=== PATIENT | male | born 1960 | race Caucasian/White ===

== ENCOUNTER 2024-10-25 01:55 | Emergency (ER) | payer MEDICARE, SELFPAY ==
[2024-10-25 01:55] VITALS: BP 131/102; PULSE 133; RESP 20; TEMP 37.1; O2SAT 96; BMI 33.0
--- NOTE | 2024-10-25 01:55 | ECG_ITS ---
APPROVED REPORT Exam: Resting ECG HR:115 bpm ECG Measurements Heart Rate 115 AXES NM 181 P 64 QRSd 109 QRS 73 QT 332 T 38 QTc 400 Conclusion SINUS TACHYCARDIA NONSPECIFIC T-WAVE ABNORMALITY ABNORMAL RHYTHM ECG UNCONFIRMED REPORT Electronically signed by : DEB CHEW, 10/25/2024 06:49:59
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
[2024-10-25 02:00] LABS: VBG Base Excess -0.2 mmol/L (-2.4-2.3); VBG HCO3 24.8 mmol/L (23-30); VBG PCO2 42.2 mmol/L (35-51); VBG PH 7.39 mmol/L (7.31-7.41); VBG PO2 42.4 mmol/L (28-40); VBG Total CO2 26.1 mmol/L (23-27)
[2024-10-25 02:01] LABS: Basophils % 0.6 % (0.1-2.0); Eosinophils # 0.1 Kmm3 (0.0-0.4); Eosinophils % 2.2 % (0.1-12.0); Hematocrit 41.6 % (42.0-52.0); Hemoglobin 14.1 g/dL (14.1-18.0); Immature Granulocytes # 0.02 10^3uL; Immature Granulocytes % 0.3 %; Lymphocytes # 2.2 K/mm3 (0.7-4.5); Lymphocytes % 33.6 % (10-50); Mean Corpuscular HGB Conc 33.9 g/dL (31.8-35.4); Mean Corpuscular Hemoglobin 30.5 pg (27.0-31.2); Mean Corpuscular Volume 89.8 fl (80-94); Mean Platelet Volume 8.8 fl (7.4-10.4); Monocytes # 0.4 K/mm3 (0.1-1.0); Monocytes % 6.5 % (1.7-9.3); Neutrophils # 3.6 K/mm3 (1.8-7.8); Neutrophils % 56.8 % (37.0-80.0); Nucleated Red Blood Cells # 0 10^3/uL; Nucleated Red Blood Cells % 0 %; Platelet Count 376 K/mm3 (142-424); Red Blood Count 4.63 M/mm3 (4.60-6.20); Red Cell Distribution Width 12.3 % (11.5-17.5); Red Cell Distribution Width-SD 40.3 fL; White Blood Count 6.4 K/mm3 (4.8-10.8)
[2024-10-25 02:13] LABS: Alanine Aminotransferase 14 U/L (12-78); Albumin Level 4.3 g/dl (3.5-5.0); Albumin/Globulin Ratio 1.5 (1.1-1.8); Alkaline Phosphatase 103 U/L (38-126); Anion Gap 9.8 mEq/L (5-15); Aspartate Amino Transferase 23 U/L (17-59); Bilirubin,Total 0.6 mg/dl (0.2-1.3); Blood Urea Nitrogen 13 mg/dl (9-20); Calcium 9.2 mg/dl (8.4-10.2); Carbon Dioxide 27 mmol/L (22.0-30.0); Chloride 105 mmol/L (98-107); Creatinine Clearance Estimated 121 mL/min (50-200); Estimated Glomerular Filt Rate 85 ml/min (>60); GFR (African American) 103 ML/MIN (>60); Globulin 2.9 g/dL (1.3-3.2); Glucose 107 mg/dl (74-100); Potassium 3.8 mmoL/L (3.5-5.1); Sodium 138 mmol/L (136-145); Total Protein,Serum 7.2 g/dl (6.3-8.2)
[2024-10-25 02:14] LABS: Carboxyhemoglobin 1.2 (0.0-5.0)
[2024-10-25 02:16] LABS: Acetaminophen < 10 ug/ml (10-30); Ethyl Alcohol < 10 mg/dl (0-10); Salicylate < 1.0 mg/dL (2.0-20.0)
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
--- NOTE | 2024-10-25 02:32 | PC.NURSE ---
pt remains off monitoring equipment due to patient pulling equipment off. Family here at this time.
--- NOTE | 2024-10-25 02:35 | PC.NURSE ---
pt has been provided with water and is drinking it at this time.
--- NOTE | 2024-10-25 02:43 | PC.NURSE ---
0239 Interactive discussion with family regarding POC. ED provider at the bedside at this time discussing POC
[2024-10-25 02:46] VITALS: BP 144/86; PULSE 115; RESP 24; TEMP 37.1; O2SAT 97
--- NOTE | 2024-10-25 02:46 | PC.NURSE ---
IV removed, family at the bedside. PD and [employer] department remains in the ED. Pt remains cuffed to bed for safety at this time. 3rd cup of ice and water given to patient at this time.
--- NOTE | 2024-10-25 02:52 | PC.NURSE ---
Attempt to discharge patient when family friend now states that she thinks it would be best to keep him here a little longer. ED provider at the bedside at this time.
== END 2024-10-25 03:00 | disposition home or self-care (01) ==
PROVIDERS: Emergency Provider Emergency Medicine
DX: R41.82 Altered mental status, unspecified (principal)
CPT/HCPCS: 80053; 80320; 80329; 82375; 82803; 85025; 93005; 96360; 99284